=== PATIENT | male | born 1950 | race Caucasian/White ===

== ENCOUNTER 2018-02-19 21:21 | Emergency (ER) | payer MEDICARE, OTHER ==
--- NOTE | 2018-02-19 22:14 | EDM.PDOC ---
ED HPI GENERAL MEDICAL PROBLEM - General Chief Complaint: Chest Pain Stated Complaint: CHEST PAIN Time Seen by Provider: 02/19/18 21:50 Source of Information: Reports: Patient, Family History Limitations: Reports: No Limitations - History of Present Illness INITIAL COMMENTS - FREE TEXT/NARRATIVE: c/o R sided CP lives at home with , has a caregiver who is here with pt and 4 hour h/o sharp brief R sided CP under the R axilla and wrapping around to the L anterior chest in the MCL given gabapentin without benefit inc'd with DB, radiates down arm on occasion no cough no f/c/d did smoke 1 ppd in the past has dementia in [place] x 10d to adjust meds for his behavior, gets agitated at times, sundowns, has not been physically violent, d/c from [place] 1w ago today no comparison labs here - Related Data Allergies Allergy/AdvReac Type Severity Reaction Status Date / Time No Known Allergies Allergy Verified 02/20/18 00:29 Home Meds: Home Meds DULoxetine HCl [Cymbalta] 20 mg PO 1700 02/19/18 [History] Divalproex Sodium 250 mg PO TID 02/19/18 [History] Gabapentin [Neurontin] 100 mg PO Q2H PRN 02/19/18 [History] amLODIPine Besylate [Amlodipine Besylate] 10 mg PO DAILY 02/19/18 [History] Donepezil HCl [Aricept] 10 mg PO DAILY 02/20/18 [History] Gabapentin [Neurontin] 200 mg PO TID 02/20/18 [History] Memantine HCl [Namenda] 10 mg PO BID 02/20/18 [History] Rivaroxaban [Xarelto] 15 mg PO BID #42 tablet 02/20/18 [Rx] Triamcinolone Acetonide [Triamcinolone Acetonide 0.1% Crm] 1 applic TOP TID [History] risperiDONE 0.25 mg PO 1700,199902/20/18 [History] traZODone HCl [Trazodone HCl] 50 mg PO BEDTIME 02/20/18 [History] Past Medical History HEENT History: Reports: Other (See Below) Other HEENT History: 2 cysts removed frpm back of left ear area on 07/07/15 Neurological History: Reports: Other (See Below) Other Neuro History: memory issues - Past Surgical History Other HEENT Surgeries/Procedures: 2 cysts removed frpm back of left ear area on 07/07/15 Social & Family History - Family History Family Medical History: Noncontributory ED ROS GENERAL - Review of Systems Review Of Systems: See Below Constitutional: Reports: No Symptoms HEENT: Reports: No Symptoms Respiratory: Reports: No Symptoms, Pleuritic Chest Pain. Denies: Shortness of Breath, Cough Cardiovascular: Reports: Chest Pain Endocrine: Reports: No Symptoms GI/Abdominal: Reports: No Symptoms : Reports: No Symptoms Musculoskeletal: Reports: No Symptoms Skin: Reports: No Symptoms Neurological: Reports: No Symptoms Psychiatric: Reports: No Symptoms Hematologic/Lymphatic: Reports: No Symptoms Immunologic: Reports: No Symptoms ED EXAM, GENERAL - Physical Exam Exam: See Below Exam Limited By: Altered Mental Status General Appearance: Alert, WD/WN, No Apparent Distress, Other (cheerful, alert, almost playful, no agitation, good eye contact, nl speech, very poor memory) Eye Exam: Bilateral Eye: Normal Inspection Ears: Normal External Exam Nose: Normal Inspection, Normal Mucosa, No Blood Throat/Mouth: Normal Inspection, Normal Lips, Normal Voice, No Airway Compromise Head: Atraumatic Neck: Normal Inspection, Supple, Non-Tender Respiratory/Chest: No Respiratory Distress, Lungs Clear, Normal Breath Sounds, No Accessory Muscle Use, Other (chest with mild tender at R MCL, pt winces to firm pressure, no cough, no dyspnea) Cardiovascular: Regular Rate, Rhythm, No Edema, No Gallop, No JVD, No Rub, Other (2/6 BOAZ at LSB) GI/Abdominal: Soft, Non-Tender Back Exam: Normal Inspection, Full Range of Motion, NT Extremities: Normal Inspection, Normal Range of Motion, Non-Tender, No Pedal Edema Neurological: Alert, CN II-XII Intact, No Motor/Sensory Deficits Psychiatric: Normal Affect, Normal Mood Skin Exam: Warm, Dry, Intact, Normal Color, No Rash Lymphatic: No Adenopathy Course - Vital Signs Last Recorded V/S: Last Vital Signs Temp 36.6 C 02/19/18 21:25 Pulse 64 02/19/18 23:45 Resp 18 02/19/18 23:45 BP 145/84 H 02/19/18 23:45 Pulse Ox 98 02/19/18 23:45 - Orders/Labs/Meds Orders: Active Orders 24 hr Category Date Time Status EKG Documentation Completion [RC] ASDIRECTED Care 02/19/18 22:08 Active Ang Chest [CT] Stat Exams 02/19/18 23:59 Taken Chest 1V Frontal [CR] Stat Exams 02/19/18 22:07 Taken Enoxaparin [Lovenox] Med 02/20/18 01:31 Once 80 mg SUBCUT ONETIME ONE EKG 12 Lead [EK] Routine Ther 02/19/18 22:07 Ordered Labs: Laboratory Tests 02/19/18 02/19/18 02/19/18 Range/Units 22:40 22:40 22:40 WBC 8.5 (4.5-12.0) X10-3/uL RBC 4.85 (4.30-5.75) x10(6)uL Hgb 13.6 (11.5-15.5) g/dL Hct 40.1 (30.0-51.3) % MCV 82.8 (80-96) fL MCH 28.0 (27.7-33.6) pg MCHC 33.8 (32.2-35.4) g/dL RDW 13.1 (11.5-15.5) % Plt Count 203 (125-369) X10(3)uL MPV 8.7 (7.4-10.4) fL Neut % (Auto) 63.2 (46-82) % Lymph % (Auto) 21.8 (13-37) % [place] % (Auto) 11.9 (4-12) % Eos % (Auto) 3 (1.0-5.0) % Baso % (Auto) 0 (0-2) % Neut # (Auto) 5.4 (1.6-8.3) # Lymph # (Auto) 1.9 (0.6-5.0) # [place] # (Auto) 1.0 (0.0-1.3) # Eos # (Auto) 0.2 (0.0-0.8) # Baso # (Auto) 0.0 (0.0-0.2) # D-Dimer, Quantitative 1.39 H (0.0-0.59) mg/LFEU Sodium 142 (135-145) mmol/L Potassium 3.9 (3.5-5.3) mmol/L Chloride 104 (100-110) mmol/L Carbon Dioxide 29 (21-32) mmol/L BUN 25 H (7-18) mg/dL Creatinine 1.3 (0.70-1.30) mg/dL Est Cr Clr Drug Dosing TNP Estimated GFR (MDRD) 55 L (>60) BUN/Creatinine Ratio 19.2 (9-20) Glucose 113 (80-116) mg/dL Calcium 8.4 L (8.6-10.2) mg/dL Total Bilirubin 0.3 (0.1-1.3) mg/dL AST 14 (5-25) IU/L ALT 27 (12-36) U/L Alkaline Phosphatase 69 (56-112) IU/L Troponin I (<0.017-0.056) ng/mL C-Reactive Protein (0.5-0.9) mg/dL Total Protein 7.0 (6.0-8.0) g/dL Albumin 3.1 L (3.2-4.6) g/dL Globulin 3.9 g/dL Albumin/Globulin Ratio 0.8 // Range/Units 22:40 WBC (4.5-12.0) X10-3/uL RBC (4.30-5.75) x10(6)uL Hgb (11.5-15.5) g/dL Hct (30.0-51.3) % MCV (80-96) fL MCH (27.7-33.6) pg MCHC (32.2-35.4) g/dL RDW (11.5-15.5) % Plt Count (125-369) X10(3)uL MPV (7.4-10.4) fL Neut % (Auto) (46-82) % Lymph % (Auto) (13-37) % [place] % (Auto) (4-12) % Eos % (Auto) (1.0-5.0) % Baso % (Auto) (0-2) % Neut # (Auto) (1.6-8.3) # Lymph # (Auto) (0.6-5.0) # [place] # (Auto) (0.0-1.3) # Eos # (Auto) (0.0-0.8) # Baso # (Auto) (0.0-0.2) # D-Dimer, Quantitative (0.0-0.59) mg/LFEU Sodium (135-145) mmol/L Potassium (3.5-5.3) mmol/L Chloride (100-110) mmol/L Carbon Dioxide (21-32) mmol/L BUN (7-18) mg/dL Creatinine (0.70-1.30) mg/dL Est Cr Clr Drug Dosing Estimated GFR (MDRD) (>60) BUN/Creatinine Ratio (9-20) Glucose (80-116) mg/dL Calcium (8.6-10.2) mg/dL Total Bilirubin (0.1-1.3) mg/dL AST (5-25) IU/L ALT (12-36) U/L Alkaline Phosphatase (56-112) IU/L Troponin I < 0.017 L (<0.017-0.056) ng/mL C-Reactive Protein 0.8 (0.5-0.9) mg/dL Total Protein (6.0-8.0) g/dL Albumin (3.2-4.6) g/dL Globulin g/dL Albumin/Globulin Ratio Meds: Medications Discontinued Medications Generic Name Dose Route Start Last Admin Trade Name Freq PRN Reason Stop Dose Admin Sodium Chloride 1,000 mls @ 999 mls/hr 02/19/18 23:38 02/19/18 23:52 Normal Saline IV 02/20/18 00:38 999 mls/hr .BOLUS ONE Administration Iopamidol 100 ml 02/20/18 00:00 Isovue-370 (76%) IV 02/20/18 00:01 ONETIME ONE Lorazepam 2 mg 02/19/18 23:38 02/19/18 23:52 Ativan IVPUSH 02/19/18 23:39 2 mg ONETIME ONE Administration - Re-Assessments/Exams Free Text/Narrative Re-Assessment/Exam: 02/20/18 01:32 CxR neg, labs neg except inc'd d-dimer chest CTA positive for multiple b/l PEs without R heart strain risks and benefits of anticoagulation discussed, including possible interaction with current meds PCP is Dr Chavez, will have pt seen later today or tomorrow currently sleeping from the Ativan 2 mg IV, VSS, requested initial dose of meds to be Lovenox now and to start the Xarelto in the morning there is no edema or asymmetry of his LEs pt given 1 liter NS to decrease risk of dye load Departure - Departure Time of Disposition: 01:35 Disposition: Home, Self-Care 01 Condition: Good Clinical Impression: Bilateral pulmonary embolism Prescriptions: Rivaroxaban [Xarelto] 15 mg PO BID #42 tablet Instructions: Pulmonary Embolism Referrals: Tito Lees MD [Primary Care Provider] - Forms: ED Department Discharge Additional Instructions: In order to anticoagulate (thin) the blood, take Xarelto 15 mg 1 tab 2 times a day with food. For chest discomfort, take acetaminophen 325 mg 2 tabs 4 times a day as needed. See Dr Chavez either later today or tomorrow. Return to ED if he is feeling worse. Call your Physician or Return to Emergency Department if: * Your condition worsens in any way. * You develop fever greater than 100.4. * You have vomitting that does not stop with medications. * You have pain that is not controlled with medications. - My Orders Last 24 Hours: My Active Orders 02/19/18 22:07 Chest 1V Frontal [CR] Stat EKG 12 Lead [EK] Routine 02/19/18 22:08 EKG Documentation Completion [RC] ASDIRECTED 02/19/18 23:59 Ang Chest [CT] Stat 02/20/18 01:31 Enoxaparin [Lovenox] 80 mg SUBCUT ONETIME ONE - Assessment/Plan Last 24 Hours: My Active Orders 02/19/18 22:07 Chest 1V Frontal [CR] Stat EKG 12 Lead [EK] Routine 02/19/18 22:08 EKG Documentation Completion [RC] ASDIRECTED 02/19/18 23:59 Ang Chest [CT] Stat 02/20/18 01:31 Enoxaparin [Lovenox] 80 mg SUBCUT ONETIME ONE
[2018-02-19] MEDS ORDERED: LORazepam 2 MG/ML SDV IVPUSH ONE (23:38)
[2018-02-19] MEDS ORDERED: Sodium Chloride 0.9% 1,000 ML IV ONE (23:38)
[2018-02-20] MEDS ORDERED: Iopamidol 755 Mg/ML 100 ML Bottle IV ONE
[2018-02-20] MEDS ORDERED: Enoxaparin 80 MG/0.8 ML Syringe SUBCUT ONE (01:31)
[2018-02-20 04:42] VITALS: BP 134/79
--- NOTE | 2018-02-20 12:32 | CR ---
INDICATION: Sharp pleuritic right-sided chest pain times 4 hours. CHEST: A single AP upright portable view of the chest was obtained 02/19/2018 - no comparisons were available. Motion was seen on one of the images. The heart did not appear enlarged. The aorta is somewhat tortuous with minimal calcification suggested in the arch but not definite. Bony structures appear to be grossly intact. No consolidating pneumonia or effusion was seen. Interstitial markings are slightly prominent, raising question of mild interstitial fibrosis or active interstitial disease of mild degree. There may be some very minimal patchy infiltrate in the right mid lung field and at the right costophrenic angle. Full inspiration PA and lateral views of the chest may be helpful when clinically possible in that regard. IMPRESSION: 1. No definite acute process but cannot exclude minimal interstitial disease and possibly minimal patchy bronchopneumonia on the right in the mid lung field and at the costophrenic angle. Full inspiration PA and lateral views of the chest may be helpful for confirmation, as felt to be clinically necessary. 2. Mild ASD aorta. MTDD
== END 2018-02-20 02:10 | disposition home or self-care (01) ==
LOC: FB.ED 21:21
DX: I26.99 Other pulmonary embolism without acute cor pulmonale (principal); F17.210 Nicotine dependence, cigarettes, uncomplicated; Z79.899 Other long term (current) drug therapy
CPT/HCPCS: 36415; 71045; 71275; 80053; 84484; 85025; 85379; 86140; 93005; 96361; 96372; 96374; 99284; 99285; J1650; J2060; J7030

== ENCOUNTER 2020-02-21 21:48 | Emergency (ER) | payer MEDICARE, OTHER ==
[2020-02-21 22:13] VITALS: BP 158/96; PULSE 52
--- NOTE | 2020-02-21 23:40 | EDM.PDOC ---
ED HPI GENERAL MEDICAL PROBLEM - General Chief Complaint: Head Injury Stated Complaint: fall-head injury Time Seen by Provider: 02/21/20 22:00 Source of Information: Reports: Patient, Family History Limitations: Reports: No Limitations - History of Present Illness INITIAL COMMENTS - FREE TEXT/NARRATIVE: Patient presented to the ED because of a head injury. He apparently fell from his recliner and hit his head on the floor. There is no LOC after the fall. Marquez is non-verbal and most of the history was taken from his . - Related Data Allergies Allergy/AdvReac Type Severity Reaction Status Date / Time No Known Allergies Allergy Verified 03/18/18 23:55 Home Meds: Home Meds DULoxetine HCl [Cymbalta] 20 mg PO 17 02/19/18 [History] Divalproex Sodium 250 mg PO 08,14,20 02/19/18 [History] Donepezil HCl [Aricept] 10 mg PO 20 02/20/18 [History] Memantine HCl [Namenda] 10 mg PO BID 02/20/18 [History] risperiDONE 0.25 mg PO 17,22 02/20/18 [History] Acetaminophen 650 mg PO Q4H PRN 03/18/18 [History] Apixaban [Eliquis] 5 mg PO 08,20 03/18/18 [History] Gabapentin [Neurontin] 300 mg PO 08,12,16,20 03/18/18 [History] Loperamide HCl [Imodium A-D] 2 mg PO ASDIRECTED 03/18/18 [History] amLODIPine Besylate [Amlodipine Besylate] 5 mg PO 20 03/18/18 [History] traZODone HCl [Trazodone HCl] 100 mg PO 20 03/18/18 [History] Acetaminophen [Arthritis Pain] 650 mg PO BID 02/21/20 [History] Carbidopa/Levodopa [Carbidopa-Levodopa 25-100] 1 tab PO TID 02/21/20 [History] Cetirizine [ZyrTEC] 10 mg PO DAILY 02/21/20 [History] Divalproex Sodium 125 mg PO TID 02/21/20 [History] Past Medical History HEENT History: Reports: Other (See Below) Other HEENT History: 2 cysts removed frpm back of left ear area on 07/07/15 Cardiovascular History: Reports: Hypertension Respiratory History: Reports: Other (See Below) Other Respiratory History: Emphysema. Neurological History: Reports: Other (See Below) Other Neuro History: memory issues Psychiatric History: Reports: Alzheimers Disease - Past Surgical History Other HEENT Surgeries/Procedures: 2 cysts removed frpm back of left ear area on 07/07/15 Social & Family History - Family History Family Medical History: Noncontributory - Caffeine Use Caffeine Use Comment: Unable to tell me ED ROS GENERAL - Review of Systems Review Of Systems: See Below Constitutional: Reports: No Symptoms HEENT: Reports: No Symptoms Respiratory: Reports: No Symptoms Cardiovascular: Reports: No Symptoms Endocrine: Reports: No Symptoms GI/Abdominal: Reports: No Symptoms : Reports: No Symptoms Musculoskeletal: Reports: No Symptoms Skin: Reports: No Symptoms Neurological: Reports: Other (dementia, Parkinson's Dse) Psychiatric: Reports: No Symptoms ED EXAM, HEAD INJURY - Physical Exam Exam: See Below Exam Limited By: No Limitations General Appearance: Alert, No Apparent Distress Head: Atraumatic, Normocephalic Ears: Normal External Exam, Normal Canal, Hearing Grossly Normal Nose: Normal Inspection, Normal Mucousa Throat/Mouth: Normal Inspection, Normal Lips, Normal Teeth, Normal Gums Neck: Non-Tender, Full Range of Motion, Normal Alignment, Normal Inspection Respiratory: No Respiratory Distress, Lungs Clear, Normal Breath Sounds Cardiovascular: Normal Peripheral Pulses, Regular Rate, Rhythm, No Edema, No Gallop GI/Abdominal Exam: Normal Bowel Sounds, Soft, Non-Tender, No Organomegaly, No Distention Back Exam: Normal Inspection, Full Range of Motion Extremities: Normal Inspection, Normal Range of Motion, Non-Tender, No Pedal Edema, Normal Capillary Refill Neurologic: No Motor/Sensory Deficits, Alert, Other (demented) Course - Vital Signs Text/Narrative:: Labs/Head CT was discussed with patient, his and son and verbalized full understanding I discussed with them treatment for normal pressure hydrocephalus which is putting a ventricular shunt but they told me that patient is just on palliative care and no interventions needed. Last Recorded V/S: Last Vital Signs Temp 36.4 C 02/21/20 21:55 Pulse 52 L 02/21/20 21:55 Resp 16 02/21/20 21:55 BP 158/96 H 02/21/20 21:55 Pulse Ox 98 02/21/20 21:55 - Orders/Labs/Meds Orders: Active Orders 24 hr Category Date Time Status Head wo Cont [CT] Stat Exams 02/21/20 22:09 Taken Labs: Laboratory Tests 02/21/20 02/21/20 Range/Units 22:30 22:30 WBC 5.3 (4.5-12.0) X10-3/uL RBC 4.40 (4.30-5.75) x10(6)uL Hgb 12.6 L (13.5-17.8) g/dL Hct 37.6 (30.0-51.3) % MCV 85.5 (80-96) fL MCH 28.7 (27.7-33.6) pg MCHC 33.6 (32.2-35.4) g/dL RDW 13.0 (11.5-15.5) % Plt Count 179 (125-369) X10(3)uL MPV 8.7 (7.4-10.4) fL Neut % (Auto) 52.2 (46-82) % Lymph % (Auto) 34.9 (13-37) % [place] % (Auto) 10.8 (4-12) % Eos % (Auto) 1 (1.0-5.0) % Baso % (Auto) 1 (0-2) % Neut # (Auto) 2.8 (1.6-8.3) # Lymph # (Auto) 1.8 (0.6-5.0) # [place] # (Auto) 0.6 (0.0-1.3) # Eos # (Auto) 0.1 (0.0-0.8) # Baso # (Auto) 0.0 (0.0-0.2) # Sodium 145 (135-145) mmol/L Potassium 3.7 (3.5-5.3) mmol/L Chloride 107 (100-110) mmol/L Carbon Dioxide 32 (21-32) mmol/L BUN 25 H (7-18) mg/dL Creatinine 1.1 (0.70-1.30) mg/dL Est Cr Clr Drug Dosing TNP Estimated GFR (MDRD) > 60 (>60) BUN/Creatinine Ratio 22.7 H (9-20) Glucose 83 (80-116) mg/dL Calcium 8.8 (8.6-10.2) mg/dL Total Bilirubin 0.4 (0.1-1.3) mg/dL AST 20 D (5-25) IU/L ALT 8 L D (12-36) U/L Alkaline Phosphatase 45 L (56-112) IU/L Creatine Kinase 36 L (60-160) IU/L Total Protein 6.7 (6.0-8.0) g/dL Albumin 3.4 (3.2-4.6) g/dL Globulin 3.3 g/dL Albumin/Globulin Ratio 1.0 Departure - Departure Time of Disposition: 23:45 Disposition: DC/Tfer to SNF 03 Condition: Good Clinical Impression: Normal pressure hydrocephalus, Punctate hemorrhage of frontal lobe - Discharge Information Instructions: Normal-Pressure Hydrocephalus, Head Injury, Adult, [id number] Referrals: Tito Lees MD [Primary Care Provider] - Forms: ED Department Discharge Additional Instructions: Please read discharge instructions on normal pressure hydrocephalus and punctate hemorrhages Follow up as needed Sepsis Event Note (ED) - Focused Exam Vital Signs: Vital Signs Temp Pulse Resp BP Pulse Ox 02/21/20 21:55 36.4 C 52 L 16 158/96 H 98 - My Orders Last 24 Hours: My Active Orders 02/21/20 22:09 Head wo Cont [CT] Stat - Assessment/Plan Last 24 Hours: My Active Orders 02/21/20 22:09 Head wo Cont [CT] Stat
== END 2020-02-21 23:55 ==
LOC: FB.ED 21:48
DX: S06.2X0A Diffuse traumatic brain injury without loss of consciousness, initial encounter (principal); G91.9 Hydrocephalus, unspecified; I10 Essential (primary) hypertension; G30.9 Alzheimer's disease, unspecified; F02.80 Dementia in other diseases classified elsewhere, unspecified severity, without behavioral disturbance, psychotic disturbance, mood disturbance, and anxiety; G20 Parkinson's disease; Z79.01 Long term (current) use of anticoagulants; Z79.899 Other long term (current) drug therapy; W08.XXXA Fall from other furniture, initial encounter
CPT/HCPCS: 36415; 70450; 80053; 82550; 85025; 99285-25